=== PATIENT | female | born 2005 | race Two or more races ===

== ENCOUNTER 2023-02-11 08:06 | Outpatient (CLI) | payer OTHER | END 2023-02-11 08:07 | disposition home or self-care (01) | LOC: PRENATAL 08:06 | PROVIDERS: ATTEND Obstetrics & Gynecology Maternal & Fetal Medicine | DX: O35.3XX0 Maternal care for (suspected) damage to fetus from viral disease in mother, not applicable or unspecified (principal); O44.00 Complete placenta previa NOS or without hemorrhage, unspecified trimester; Z3A.19 19 weeks gestation of pregnancy ==

== ENCOUNTER 2023-05-09 08:36 | Outpatient (CLI) | payer OTHER | END 2023-05-09 09:53 | disposition home or self-care (01) | LOC: PRENATAL 08:36 | PROVIDERS: ATTEND Obstetrics & Gynecology Maternal & Fetal Medicine | DX: O26.849 Uterine size-date discrepancy, unspecified trimester (principal); O36.8199 Decreased fetal movements, unspecified trimester, other fetus; O32.9XX0 Maternal care for malpresentation of fetus, unspecified, not applicable or unspecified; Z3A.32 32 weeks gestation of pregnancy ==

== ENCOUNTER 2023-05-27 18:03 | Outpatient (CLI) | payer OTHER ==
[~2023-05-27] VITALS: Ht 165.1 cm; Wt 78.9 kg
[2023-05-27] MEDS ORDERED: PRENATAL TABLE1 EAC1 PO (18:20)
[2023-05-27] MEDS ORDERED: IRON325 MG PO (18:20)
[2023-05-27 18:50] LABS: PH,URINE 6.5 (5.0-8.0); URINE APPEARANCE Clear; URINE BILIRRUBIN Negative (NEGATIVE); URINE BLOOD Negative; URINE COLOR Yellow; URINE GLUCOSE Negative (NEGATIVE); URINE LEUKOCYTE Moderate; URINE NITRATE Negative; URINE PROTEIN Negative (NEGATIVE); URINE UROBILINOGEN 0.2 E.U./dl
[2023-05-27 18:53] LABS: URINE BACTERIA 2282.9 uL (0.0-1933); URINE EPITHELIAL CELLS 34.4 uL (0.0-38.8); URINE RBC 5.1 uL (0.0-20.8); URINE WBC 59.8 uL (0.0-23.2)
[2023-05-27 18:55] LABS: HEMATOCRIT 31.6 % (36.0-45.00); HEMOGLOBIN 10.8 g/dL (12.0-15.00); MEAN CELL VOLUME 86.7 fL (80.00-100.00); MEAN CORPUSCULAR HEMOGLOBIN 29.5 pg (27.00-32.0); PLATELET COUNT 167 K/uL (150-450); RED BLOOD COUNT 3.65 M/uL (4.00-6.00); RED CELL DISTRIBUTION WIDTH 14.8 % (11.5-14.5)
[2023-05-27] MEDS ORDERED: CEFAZOLIN SODIUM 1,000 MG VIAL ONE (20:17)
[2023-05-27] MEDS ORDERED: RINGERS SOLUTION,LACTATED 1,000 ML IV SCH (20:30)
[2023-05-27] MEDS ORDERED: CEFAZOLIN SODIUM 1,000 MG VIAL IV SCH (20:30)
[2023-05-27] MEDS ORDERED: TERBUTALINE SULFATE 1 MG/ML AMPUL SUBCUTANEO ONE (22:45)
== END 2023-05-28 12:00 | disposition home or self-care (01) ==
LOC: OBS/DEL 18:03
PROVIDERS: Specialist; ATTEND Obstetrics & Gynecology
DX: O23.43 Unspecified infection of urinary tract in pregnancy, third trimester (principal); N39.0 Urinary tract infection, site not specified; O23.593 Infection of other part of genital tract in pregnancy, third trimester; B96.89 Other specified bacterial agents as the cause of diseases classified elsewhere; Z3A.34 34 weeks gestation of pregnancy

== ENCOUNTER 2023-06-20 12:39 | Outpatient (CLI) | payer OTHER ==
[~2023-06-20] VITALS: Ht 165.1 cm; Wt 79.4 kg
[~2023-06-20 12:39] MED LIST: IRON325 MG PO; PRENATAL TABLE1 EAC1 PO
[2023-06-20] MEDS ORDERED: RINGERS SOLUTION,LACTATED 1,000 ML IV SCH (12:45)
[2023-06-20 13:09] LABS: HEMATOCRIT 36.6 % (36.0-45.00); HEMOGLOBIN 12.1 g/dL (12.0-15.00); MEAN CELL VOLUME 86.8 fL (80.00-100.00); MEAN CORPUSCULAR HEMOGLOBIN 28.6 pg (27.00-32.0); PLATELET COUNT 187 K/uL (150-450); RED BLOOD COUNT 4.22 M/uL (4.00-6.00); RED CELL DISTRIBUTION WIDTH 14.5 % (11.5-14.5)
[2023-06-20 13:11] LABS: URINE APPEARANCE Clear; URINE BILIRRUBIN Negative (NEGATIVE); URINE BLOOD Negative; URINE COLOR Yellow; URINE GLUCOSE Negative (NEGATIVE); URINE LEUKOCYTE Small; URINE NITRATE Negative; URINE PROTEIN Negative (NEGATIVE); URINE UROBILINOGEN 0.2 E.U./dl
[2023-06-20 13:18] LABS: URINE BACTERIA 686.6 uL (0.0-1933); URINE RBC 4.7 uL (0.0-20.8); URINE WBC 48.5 uL (0.0-23.2)
[2023-06-20 13:29] LABS: INR < 0.93; PARTIAL THROMBOPLASTIN TIME 25.7 SECONDS (22.0-34.0); PROTHROMBIN TIME 9.6 SECONDS (9.0-11.5)
[2023-06-20 13:35] LABS: ALBUMIN 2.8 gm/dL (3.4-5.0); BILIRUBIN TOTAL 0.56 mg/dL (0.3-1.2); CALCIUM 9.2 mg/dL (8.5-10.1); CREATININE SERUM 0.66 mg/dL (0.55-1.02); GFR 115.37; GLOBULINA 3.4 G/DL (2.4-3.5); POTASSIUM 4.39 mEq/L (3.5-5.1); TOTAL PROTEIN 6.2 gm/dL (6.4-8.2)
== END 2023-06-20 17:43 | disposition home or self-care (01) ==
LOC: OBS/DEL 12:39
PROVIDERS: Obstetrics & Gynecology; ATTEND Obstetrics & Gynecology
DX: O47.1 False labor at or after 37 completed weeks of gestation (principal); Z3A.38 38 weeks gestation of pregnancy

== ENCOUNTER 2023-06-21 14:00 | Inpatient (IN) | payer OTHER ==
[~2023-06-21] VITALS: Ht 165.1 cm; Wt 81.6 kg
[2023-06-27] MEDS ORDERED: AMPICILLIN SODIUM 2,000 MG VIAL ONE (05:25)
[2023-06-27] MEDS ORDERED: RINGERS SOLUTION,LACTATED 1,000 ML IV SCH (05:30)
[2023-06-27] MEDS ORDERED: AMPICILLIN SODIUM 2,000 MG VIAL IV ONE (05:30)
[2023-06-27 06:40] LABS: PH,URINE 5.5 (5.0-8.0); URINE APPEARANCE Cloudy; URINE BILIRRUBIN Negative (NEGATIVE); URINE BLOOD Negative; URINE COLOR Yellow; URINE GLUCOSE Negative (NEGATIVE); URINE LEUKOCYTE Moderate; URINE NITRATE Negative; URINE PROTEIN Negative (NEGATIVE); URINE UROBILINOGEN 0.2 E.U./dl
[2023-06-27 06:43] LABS: URINE RBC 11.2 uL (0.0-20.8); URINE WBC 321.8 uL (0.0-23.2)
[2023-06-27 07:18] LABS: URINE BACTERIA > 9821.5 uL (0.0-1933)
[2023-06-27 07:26] LABS: HEMOGLOBIN 12.6 g/dL (12.0-15.00); MEAN CELL VOLUME 89.4 fL (80.00-100.00); MEAN CORPUSCULAR HEMOGLOBIN 29.8 pg (27.00-32.0); MEAN CORPUSCULAR HGB CONC 33.3 g/dl (32.0-36.0); PLATELET COUNT 188 K/uL (150-450); RED BLOOD COUNT 4.25 M/uL (4.00-6.00); RED CELL DISTRIBUTION WIDTH 14.2 % (11.5-14.5)
[2023-06-27] MEDS ORDERED: MISOPROSTOL 50 MCG TABLET ONE (07:28)
[2023-06-27 07:33] LABS: INR < 0.93; PROTHROMBIN TIME 9.5 SECONDS (9.0-11.5)
[2023-06-27 07:56] LABS: ALBUMIN 2.8 gm/dL (3.4-5.0); BILIRUBIN TOTAL 0.42 mg/dL (0.3-1.2); CALCIUM 9.5 mg/dL (8.5-10.1); CREATININE SERUM 0.7 mg/dL (0.55-1.02); GFR 107.8; GLOBULINA 3.7 G/DL (2.4-3.5); POTASSIUM 4.81 mEq/L (3.5-5.1); TOTAL PROTEIN 6.5 gm/dL (6.4-8.2)
[2023-06-27] MEDS ORDERED: MISOPROSTOL 50 MCG TABLET VAG ONE (08:00)
[2023-06-27] MEDS ORDERED: AMPICILLIN SODIUM 1,000 MG VIAL IV SCH (09:00)
[2023-06-27] MEDS ORDERED: SUGAMMADEX SODIUM 200 MG/2 ML VIAL IV ONE (13:16)
[2023-06-27] MEDS ORDERED: PROMETHAZINE HCL 25 MG/ML AMPUL IV ONE (14:45)
[2023-06-27] MEDS ORDERED: MEPERIDINE HCL/PF 25 MG/ML VIAL IV ONE (14:45)
[2023-06-27] MEDS ORDERED: ERYTHROMYCIN BASE 1 GM TUBE OP ONE (16:15)
[2023-06-27] MEDS ORDERED: CHLORHEXIDINE GLUCONATE 120 ML BOTTLE TOP ONE (16:15)
[2023-06-27] MEDS ORDERED: OXYTOCIN 20 UNITS/1000ML RL PIGGYBAG IV ONE ×2 (16:16→18:15)
[2023-06-27] MEDS ORDERED: NALOXONE HCL 0.4 MG/ML AMPUL ONE (16:40)
[2023-06-27] MEDS ORDERED: NALOXONE HCL 0.4 MG/ML AMPUL IV ONE (16:45)
[2023-06-27] MEDS ORDERED: LIDOCAINE HCL 1% 200MG/20ML VIAL IJ SCH (18:15)
[2023-06-27] MEDS ORDERED: CHLORHEXIDINE GLUCONATE 120 ML BOTTLE TOP SCH (18:15)
[2023-06-27] MEDS ORDERED: ERYTHROMYCIN BASE 1 GM TUBE OP SCH (18:15)
[2023-06-28] MEDS ORDERED: ACETAMINOPHEN 500 MG GEL..CAP PO SCH
[2023-06-28 06:37] LABS: HEMATOCRIT 32.8 % (36.0-45.00); MEAN CELL VOLUME 87.3 fL (80.00-100.00); MEAN CORPUSCULAR HEMOGLOBIN 29.2 pg (27.00-32.0); MEAN CORPUSCULAR HGB CONC 33.4 g/dl (32.0-36.0); PLATELET COUNT 175 K/uL (150-450); RED BLOOD COUNT 3.76 M/uL (4.00-6.00); RED CELL DISTRIBUTION WIDTH 13.8 % (11.5-14.5)
== END 2023-06-29 12:48 | disposition home or self-care (01) | DRG 807 ==
LOC: OB/GYN 06-27 05:10 → LDR 06-27 05:10 → OB/GYN 06-27 14:00
PROVIDERS: ADMIT Obstetrics & Gynecology; ATTEND Obstetrics & Gynecology
PROC: 10E0XZZ Delivery of Products of Conception, External Approach (ICD-10-PCS; principal; 2023-06-27)
PROC: 3E033VJ Introduction of Other Hormone into Peripheral Vein, Percutaneous Approach (ICD-10-PCS; 2023-06-27)
PROC: 3E0P7VZ Introduction of Hormone into Female Reproductive, Via Natural or Artificial Opening (ICD-10-PCS; 2023-06-27)
PROC: 4A1HXCZ Monitoring of Products of Conception, Cardiac Rate, External Approach (ICD-10-PCS; 2023-06-27)
DX: O70.1 Second degree perineal laceration during delivery (principal); Z37.0 Single live birth; O99.824 Streptococcus B carrier state complicating childbirth; Z3A.39 39 weeks gestation of pregnancy; Z20.822 Contact with and (suspected) exposure to COVID-19